=== PATIENT | female | born 1980 | race Caucasian/White ===

== ENCOUNTER 2016-11-17 16:15 | Outpatient (CLI) | payer OTHER | END 2016-11-17 16:16 | disposition home or self-care (01) | DX: R53.83 Other fatigue (principal) ==

== ENCOUNTER 2016-12-10 12:59 | Outpatient (CLI) | payer OTHER | END 2016-12-10 13:00 | disposition home or self-care (01) | DX: R42 Dizziness and giddiness (principal) ==

== ENCOUNTER 2017-02-18 15:49 | Outpatient (CLI) | payer OTHER ==
[2017-02-18 17:19] LABS: THYROID STIMULATING HORMONE 0.85 uIU/mL (0.34-5.60)
== END 2017-02-18 15:50 | disposition home or self-care (01) ==
LOC: LAB 15:49
PROVIDERS: ATTEND Obstetrics & Gynecology
DX: E03.9 Hypothyroidism, unspecified (principal)
CPT/HCPCS: 36415; 84439; 84443; 84481

== ENCOUNTER 2017-04-24 14:34 | Outpatient (CLI) | payer OTHER ==
[2017-04-24 15:00] LABS: BASOPHILS # (AUTO) 0.1 10^3/uL (0.0-0.1); BASOPHILS % (AUTO) 0.5 %; EOSINOPHILS # (AUTO) 0.5 10^3/uL (0.0-0.7); HCT - HEMATOCRIT 40.9 % (37.0-47.0); HGB - HEMOGLOBIN 13.8 g/dL (12.0-16.0); LYMPHOCYTES # (AUTO) 3.1 10^3/uL (1.5-3.5); LYMPHOCYTES % (AUTO) 32.9 %; MEAN CORPUSCULAR HEMOGLOBIN 29.6 pg (27.0-31.0); MEAN CORPUSCULAR HGB CONC 33.7 g/dL (32.0-36.0); MEAN CORPUSCULAR VOLUME 87.8 fL (81.0-99.0); MEAN PLATELET VOLUME 7.4 fL (7.9-10.8); MONOCYTES # (AUTO) 0.6 10^3/uL (0.0-1.0); MONOCYTES % (AUTO) 6.2 %; NEUTROPHILS # (AUTO) 5.3 10^3/uL (1.5-6.6); NEUTROPHILS % (AUTO) 55.4 %; RED BLOOD COUNT 4.66 10^6/uL (4.20-5.40); RED CELL DISTRIBUTION WIDTH 13.6 % (12.0-15.0); UNCORRECTED WHITE BLOOD COUNT 9.5 x10^3/uL; WHITE BLOOD COUNT 9.5 x10^3/uL (4.8-10.8)
== END 2017-04-24 14:35 | disposition home or self-care (01) ==
LOC: LAB 14:34
PROVIDERS: ATTEND Obstetrics & Gynecology
DX: R53.81 Other malaise (principal)
CPT/HCPCS: 36415; 82306; 82728; 85025

== ENCOUNTER 2019-01-08 15:52 | Outpatient (CLI) | payer OTHER ==
--- NOTE | 2019-01-10 00:54 | Ultrasound Report ---
Reason: PELVIC PAIN,FEMALE Procedure Date: 01/08/2019 Accession Number: [id number] / [id number] Procedure: US - Pelvic w/Transvaginal CPT Code: FULL RESULT: EXAM: PELVIC ULTRASOUND EXAM DATE: 01/08/2019 05:08 PM. CLINICAL HISTORY: Pelvic pain, female. COMPARISON: None. TECHNIQUE: Real-time transabdominal pelvic scan performed to identify the uterus and adnexa and as an overview of other pelvic structures, followed by transvaginal scan to provide greater detail of the uterus and adnexa, with static image documentation. FINDINGS: Uterus: 6.8 x 3.0 x 4.0 cm, volume 42.7 cc. Anteverted position. Normal overall size and echotexture. Masses: None. Endometrium: 3.8 mm. No hypervascular nodules. IUD positioned within the lower uterine segment. Cervix: Unremarkable. Right Ovary: 3.3 x 2.2 x 2.2 cm, volume 8.4 cc. Normal echotexture and blood flow. Left Ovary: 2.2 x 1.3 x 2.3 cm, volume 3.4 cc. Normal echotexture and blood flow. Free Fluid: None. Other: None. IMPRESSION: 1. IUD positioned within the lower uterine segment. 2. Otherwise unremarkable pelvic ultrasound exam. RADIA
== END 2019-01-08 15:53 | disposition home or self-care (01) ==
LOC: DI 15:52
PROVIDERS: ATTEND Obstetrics & Gynecology
DX: R10.2 Pelvic and perineal pain (principal); Z97.5 Presence of (intrauterine) contraceptive device
CPT/HCPCS: 76830; 76856

== ENCOUNTER 2020-11-02 08:41 | Outpatient (CLI) | payer OTHER ==
--- NOTE | 2020-11-05 12:55 | Mammography Report ---
BILATERAL DIGITAL DIAGNOSTIC MAMMOGRAM 3D/2D: 11/02/2020 CLINICAL: Palpable lumps in both breasts. Multiple family memebers with breast cancer. Comparison is made to exams dated: 12/08/2011 mammogram and 12/08/2011 ultrasound - [facility]. The tissue of both breasts is extremely dense, which lowers the sensitivity of mammograp hy. There is a 1.2 cm oval equal density mass with an obscured margin in the right breast at 10 o'clock m iddle depth. This correlates as palpated and to the area of reported pain. Biopsy clip in the right axillary tail posterior to the palpable abnormality. No mass seen in the left axillary tail at the site of focal pain. No other significant masses, calcifications, or other findings are seen in either breast. IMPRESSION: INCOMPLETE: NEEDS ADDITIONAL IMAGING EVALUATION The 1.2 cm oval equal density mass in the right breast is indeterminate. A bilateral targeted ultrasound is recommended and will immediately follow. This exam was interpreted at Station ID: [id number]. NOTE: For mammograms, a report in lay terms will be sent to the patient. Approximately 15% of breast malignancies will not be visualized mammographically. In the management of a palpable breast mass, a negative mammogram must not discourage biopsy of a clinically suspicious lesion. Electronically Signed By: Juan M Moya M.D. slc/:11/02/2020 11:08:33 ACR BI-RADS Category 0: Incomplete 3340F PARENCHYMAL PATTERN: (VD) - The breast(s) demonstrate(s) extremely dense parenchyma, limiting the sen sitivity of mammography. BI-RADS CATEGORY: (0) - 0 Ultrasound [id number] Immediate follow-up LATERALITY: (B)
--- NOTE | 2020-11-05 12:55 | Ultrasound Report ---
LIMITED ULTRASOUND OF RIGHT BREAST AND AXILLA: 11/02/2020 CLINICAL: Palpable right breast lump. Comparison is made to exams dated: 11/02/2020 mammogram, 12/08/2011 mammogram, and 12/08/2011 [facility]. Color flow and real-time ultrasound of the right breast 10-12 o'clock, and axilla regions were perfor med. Fonseca scale images of the real-time examination were reviewed. There is a 1.7 cm x 1.5 cm x 0.9 cm oval mass with a microlobulated margin in the right breast at 10 o'clock middle depth 4 cm from the nipple. This oval mass is hypoechoic with posterior acoustic enha ncement. This correlates as palpated, to the reported pain, and with mammography findings. Color fl ow imaging demonstrates that there is an adjacent vascularity. No significant abnormalities were seen sonographically in the right axilla. IMPRESSION: PROBABLY BENIGN The 1.7 cm x 1.5 cm x 0.9 cm oval mass in the right breast likely represents a fibroadenoma and is pr obably benign. A follow-up ultrasound in 6 months is recommended to demonstrate stability. Exam findings were conveyed to the patient. Patient is advised to monitor for significant change. Cli nical follow-up as needed. This exam was interpreted at Station ID: [id number]. Electronically Signed By: Juan M Moya M.D. slc/:11/02/2020 11:26:32 Ultrasound BI-RADS: 3 Probably benign BI-RADS CATEGORY: (3) - 3 Ultrasound [id number] 6 month follow-up LATERALITY: (B)
--- NOTE | 2020-11-05 12:55 | Ultrasound Report ---
LIMITED ULTRASOUND OF LEFT BREAST AND AXILLA: 11/02/2020 CLINICAL: Occasional left axillary pain. Comparison is made to exams dated: 11/02/2020 ultrasound, 11/02/2020 mammogram, 12/08/2011 mammogram, a nd 12/08/2011 ultrasound - [facility]. Real-time ultrasound of the left breast 2 o'clock, and axilla regions was performed. Fonseca scale imag es of the real-time examination were reviewed. No significant abnormalities were seen sonographically in the left breast or the left axilla. IMPRESSION: NEGATIVE There is no sonographic evidence of malignancy in the region of pain. Return to screening mammogram schedule is recommended. Exam findings were conveyed to the patient. Patient is advised to monitor for significant change. This exam was interpreted at Station ID: [id number]. Electronically Signed By: Juan M Moya M.D. slc/:11/02/2020 11:09:56 Ultrasound BI-RADS: 1 Negative BI-RADS CATEGORY: (1) - 1 Mammogram [id number] 2 year screening LATERALITY: (B)
== END 2020-11-02 08:42 | disposition home or self-care (01) ==
LOC: DI 08:41
PROVIDERS: ATTEND Physician Assistant Medical
DX: N63.11 Unspecified lump in the right breast, upper outer quadrant (principal); R92.8 Other abnormal and inconclusive findings on diagnostic imaging of breast

== ENCOUNTER 2020-11-08 15:50 | Outpatient (CLI) | payer OTHER | END 2020-11-08 23:59 | disposition home or self-care (01) | LOC: COV 15:50 | PROVIDERS: ATTEND Surgery | DX: Z01.812 Encounter for preprocedural laboratory examination (principal); K64.5 Perianal venous thrombosis; Z20.822 Contact with and (suspected) exposure to COVID-19 ==

== ENCOUNTER 2020-11-12 06:30 | Day surgery (SDC) | payer OTHER ==
[2020-11-12] MEDS ORDERED: ceFAZolin 2 GM/50 ML 0 GM/0 ML BAG IV ONE (06:34)
[2020-11-12 06:57] LABS: HCG UR QUAL NEGATIVE
[2020-11-12] MEDS ORDERED: LACTATED RINGERS 1,000 ML IV ONE ×2 (07:06→09:00)
[2020-11-12] MEDS ORDERED: MORPHINE 2 MG/ML CARPUJECT IVP PRN (07:21)
[2020-11-12] MEDS ORDERED: HYDROmorphone 0.5 MG/0.5 ML SYRINGE IVP PRN (07:21)
[2020-11-12] MEDS ORDERED: NALOXONE 0.4 MG/ML VIAL IVP PRN (07:21)
[2020-11-12] MEDS ORDERED: fentaNYL 100 MCG/2 ML VIAL IVP PRN (07:21)
[2020-11-12] MEDS ORDERED: METOCLOPRAMIDE 10 MG/2 ML VIAL IVP PRN (07:21)
[2020-11-12] MEDS ORDERED: ePHEDrine 50 MG/ML VIAL IVP PRN (07:21)
[2020-11-12] MEDS ORDERED: ONDANSETRON 4 MG/2 ML VIAL IVP PRN ×2 (07:21→08:58)
[2020-11-12] MEDS ORDERED: ATROPINE ABBOJECT 1 MG/10 ML SYRINGE IVP PRN (07:21)
--- NOTE | 2020-11-12 07:21 | ANESTHESIA ---
Pre-Anesthesia VS, & Labs - Diagnosis Thrombosed external hemorrhoid - Procedure EUA with open hemorrhoidectomy Vital Signs: Temp Pulse Resp BP Pulse Ox 37. C 71 16 113/67 99 11/12/20 06:40 11/12/20 06:40 11/12/20 06:40 11/12/20 06:40 11/12/20 06:40 Height: 5 ft 5 in Weight (kg): 64.5 kg Body Mass Index: 23.6 BMI Classification: Healthy weight - NPO >8 hours - Is Patient ?: No - Lab Results Lab results reviewed: Yes Home Medications and Allergies Home Medications: Ambulatory Orders Rizatriptan Benzoate [Maxalt] 10 mg PO BID PRN 11/05/20 Topiramate [Topamax] 50 mg PO BID 11/05/20 Rizatriptan Benzoate [Maxalt] 10 mg PO BID PRN 11/05/20 Topiramate [Topamax] 50 mg PO BID 11/05/20 Allergies/Adverse Reactions: Allergies Allergy/AdvReac Type Severity Reaction Status Date / Time Penicillins Allergy Hives Verified 11/12/20 06:51 Anes History & Medical History - Anesthetic History Anesthesia Complications: reports: No previous complications Family history of Anesthesia Complications: Denies Family history of Malignant Hyperthermia: Denies - Medical History Cardiovascular: reports: None Pulmonary: reports: Asthma (exercised induced, no problems in past) Gastrointestinal: reports: Hemorrhoids Urinary: reports: None Musculoskeletal: reports: None Endocrine/Autoimmune: reports: None Skin: reports: None - Surgical History Gynecologic: Other Exam General: Alert, Oriented x3, Cooperative, No acute distress Dental: WNL Mouth Openin Fingerbreadth Neck Mobility: Normal Mallampati classification: II Respiratory: Lungs clear, Normal breath sounds, No respiratory distress, No accessory muscle use Cardiovascular: Regular rate, Normal S1, Normal S2, No murmurs Plan Anesthesia Type: General Consent for Procedure(s) Verified and Reviewed: Yes Code Status: Attempt Resuscitation ASA classification: 2-Mild systemic disease Is this case an emergency?: No
[2020-11-12] MEDS ORDERED: LIDOCAINE 2%-EPI 1:100000 20 ML MDV ONE (07:23)
[2020-11-12] MEDS ORDERED: LIDOCAINE OINTMENT 5% 35.44 GM TUBE ONE (07:23)
[2020-11-12] MEDS ORDERED: BUPIVACAINE 0.5% PF 30 ML VIAL ONE (07:23)
[2020-11-12] MEDS ORDERED: LACTATED RINGERS 1,000 ML IV SCH (08:00)
[2020-11-12] MEDS ORDERED: CIPROFLOXACIN 400 MG/200 ML 400 MG/200 ML BAG IV ONE (08:20)
[2020-11-12] MEDS ORDERED: MIDAZOLAM 2 MG/2 ML VIAL ONE (08:26)
[2020-11-12] MEDS ORDERED: fentaNYL 100 MCG/2 ML VIAL ONE (08:26)
[2020-11-12] MEDS ORDERED: PROPOFOL 200 MG/20 ML VIAL IVP ONE (08:36)
[2020-11-12] MEDS ORDERED: DEXAMETHASONE 4 MG/ML VIAL ONE (08:36)
[2020-11-12] MEDS ORDERED: ONDANSETRON 4 MG/2 ML VIAL ONE (08:36)
[2020-11-12] MEDS ORDERED: KETOROLAC 30 MG/ML VIAL ONE (08:36)
[2020-11-12] MEDS ORDERED: LIDOCAINE-MPF 2% 5 ML VIAL ONE (08:36)
[2020-11-12] MEDS ORDERED: BUPIVACAINE 0.5% PF 30 ML VIAL INFIL ONE ×2 (08:37)
[2020-11-12] MEDS ORDERED: LIDOCAINE 2%-EPI 1:100000 20 ML MDV SUBQ ONE ×2 (08:39)
--- NOTE | 2020-11-12 09:13 | OPERATIVE REPORT ---
Operative Report - General Procedure Date: 11/12/20 Planned Procedure: Examination under anesthesia with open hemorrhoidectomy and banding Pre-Op Diagnosis: Recurrent thrombosed external hemorrhoid, troublesome internal hemorrhoid Procedure Performed: Examination under anesthea with 3 column internal hemorrhoid banding and excision of external hermorrhoid complex times 2. Post Op Diagnosis: Same - Procedure Note Primary Surgeon: Bandar Anesthesia Provider: TONEY Astudillo Anesthesia Technique: General LMA, Local Pathology: Portion of hermorrhoid tissue to pathology in formalin Estimated Blood Loss (mL): 5 Indications: Painful, recurrently thrombosed external and internal hemorrhoids Findings: 1. 2 columns of prolapsing internal hemorrhoids at 3 and 7 o'clock. 2. A full deborah of enlarged internal hemorrhoids Complications: None apparent - Other Other Information/Narrative: After obtaining informed consent, the patient is brought to the operating room and placed im the supine position on the operating table. Following successful induction of anesthesia, the patient's legs were placed in stirrups for lithotomy position and all bony prominences padded. The perineal and perianal area were prepped and draped in the standard surgical fashion. A Time Out was help per scope protocol. All elements of the surgical safety check list were followed before, during and after the procedure. The perianal region was examined and an obturator placed within the anal canal. 2 large comlexes of internal hemorroids were noted to prolapse into the anal c anal. No fissure or fistula was appreciated. A large hemorrhoid was appreciated at the 4 o'clock radian and a large residual skin tag at the 7 o'clock radian. The lesion at 4 o'clock was addressed first. The hemorroid was grasped at its apex 1.5 cm proximal to the dentate line. A 3-0 chromic suture was placed at the apex. The mucosa was opened using a 15 blade scalpel. The edges of the mucosa w ere lifted and the vein gently dissected from the underlying muscle and overlying mucosa and amputated at the anal opening. The mucosa was then closed in a running, locking fashion with chromic suture. The skin tag at 12 o'clock was addressed next. This was grasped and the redundant skin excised in an elliptical fashion. The defect was then closed with 3-0 chromic suture. We addressed the internal hemorhoids lastly. With the obturator in the anal canal, the [employer] sure shot hemorrhoid geography professor was applied to the tissue. The tip of the device was placed into contact with the tissue at the 4 o'clock position first. The suction port was closed and the tissue pulled into the device. A band was applied to the tissue by rotating the deploying wheel in a clockwise direction. The procedure was repeated at the 8 o'clock position. The tip of the device was placed into contact with the tissue at the 4 o'clock position first. The suction port was closed and the tissue pulled into the device. A band was applied to the tissue by rotating the deploying wheel in a clockwise direction. The procedure was repeated at the 12 o'clock position. The tip of the device was placed into contact with the tissue. The suction port was closed and the tissue pulled into the device. A band was applied to the tissue by rotating the deploying wheel in a clockwise direction. The wound was checked for hemostasis and dressed with dibucaine and gelfoam. All sponge, needle, and instrument counts were correct at the conclusion of the case. The patient was allowed to awaken from anesthesia and taken to the post anesthesia care unit in good condition.
[2020-11-12] MEDS ORDERED: oxyCODONE 5 MG TABLET PO PRN (09:32)
[2020-11-12 10:07] VITALS: BP 119/70
--- NOTE | 2020-11-12 13:15 | ANESTHESIA POST OP EVALUATION ---
Anesthesia Post Eval - Post Anesthesia Eval Vitals: Last Vital Signs Temp 36.7 C 11/12/20 09:48 Pulse 79 11/12/20 10:07 Resp 16 11/12/20 10:07 BP 119/70 11/12/20 10:07 Pulse Ox 99 11/12/20 10:07 CV Function Including HR & BP: positive: Stable Pain Control: positive: Satisfactory Nausea & Vomiting: positive: Negative Mental Status: positive: Baseline Respiratory Status: Airway Patent Hydration Status: Satisfactory Anesthesia Complications: positive: None
== END 2020-11-12 06:31 | disposition home or self-care (01) ==
LOC: SDS 06:30
PROVIDERS: ATTEND Surgery
PROC: 06BY3ZC Excision of Hemorrhoidal Plexus, Percutaneous Approach (ICD-10-PCS; principal; 2020-11-12 07:30)
DX: K64.5 Perianal venous thrombosis (principal); K64.8 Other hemorrhoids; J45.990 Exercise induced bronchospasm; F41.9 Anxiety disorder, unspecified; G43.009 Migraine without aura, not intractable, without status migrainosus; F40.240 Claustrophobia; Z79.899 Other long term (current) drug therapy
CPT/HCPCS: 46260; 81025; A9270; J7120